=== PATIENT | male | born 1975 | race Caucasian/White ===

== ENCOUNTER 2021-01-26 12:02 | Inpatient (IN) | payer OTHER ==
[~2021-01-26] VITALS: Ht 182.9 cm; Wt 104.7 kg
[2021-01-26 12:38] LABS: BASOPHILS ABSOLUTE AUTO 0.04 K/mm3 (0.00-0.23); BASOPHILS PERCENT AUTO 1 % (0-2); EOSINOPHILS ABSOLUTE AUTO 0.42 K/mm3 (0.00-0.68); EOSINOPHILS PERCENT AUTO 6 % (0-6); Hematocrit 32.3 % (37.0-53.0); Hemoglobin 10.5 g/dL (13.5-17.5); IMMATURE GRAN ABSOLUTE AUTO 0.01 K/mm3 (0.00-0.10); IMMATURE GRAN PERCENT AUTO 0 % (0-1); LYMPHOCYTES PERCENT AUTO 20 % (21-46); MONOCYTES ABSOLUTE AUTO 0.68 K/mm3 (0.16-1.47); MONOCYTES PERCENT AUTO 9 % (4-13); Mean Corpuscular HGB 29.2 pg (26.0-34.0); Mean Corpuscular HGB Conc 32.5 g/dL (31.5-36.5); Mean Corpuscular Volume 90 fL (80-100); Mean Platelet Volume 10.6 fL (9.1-12.4); NEUTROPHILS ABSOLUTE AUTO 4.95 K/mm3 (1.96-9.15); NEUTROPHILS PERCENT AUTO 65 % (41-73); Platelet Count 258 K/mm3 (150-400); RDW Coefficient Variation 13.6 % (11.7-14.2); Red Blood Cell Count 3.59 M/mm3 (4.30-5.90)
[2021-01-26 12:51] LABS: Alanine Aminotransfer (ALT/SGP 54 U/L (12-78); Albumin, Blood 2.9 g/dL (3.4-5.0); Albumin/Globulin Ratio 0.6 (0.8-1.8); Alk Phos 93 U/L (50-136); Anion Gap 5 mmol/L (6-16); Aspartate Aminotrans (AST/SGOT 44 U/L (12-37); Bilirubin, Total 0.5 mg/dL (0.1-1.0); Blood Urea Nitrogen 17 mg/dL (8-24); Bun/Creatinine Ratio 27.7 (12.0-20.0); CO2, Blood 28 mmol/L (21-32); Calcium, Blood 10.3 mg/dL (8.5-10.1); Chloride, Blood 105 mmol/L (98-108); Creatinine, Blood 0.61 mg/dL (0.60-1.20); Globulin, Blood 4.5 g/dL (2.2-4.0); Glomerular Filtration Rate >60 (60-); Glucose, Blood 174 mg/dL (70-99); Potassium, Blood 4.3 mmol/L (3.5-5.5); Sodium, Blood 138 mmol/L (136-145); Total Protein, Blood 7.4 g/dL (6.4-8.2); Troponin I <0.015 ng/mL (0.000-0.040)
--- NOTE | 2021-01-26 22:54 | NUR ---
ASSUMED CARE OF PATIENT AT 1900. PATIENT VERY LETHARGIC BUT A/OX4 WITH SOME ANXIETY. MAINTAINING MID-HIGH 90'S ON AIRVO 50L/63%, DIM AT BASES AND LEFT UPPER, AND CLEAR R UPPER. 15L NONREBREATHER ADDED PRN FOR PATIENT COUGHING EPISODES THAT CAUSE A DESAT INTO HIGH 70'S LOW 80'S, PATIENT RECOVERS WITHIN 2 MINUTES. SINUS TACH ON MONITOR IN 120'S. CONFIRMED WITH PATIENT THAT HE WISHES TO BE DNI, EXPLAINED WHAT THAT LOOKS LIKE IN A CODE SITUATION AND PATIENT STILL MAINTAINS DNI. ORDER WAS OBTAINED TO CHANGE STATUS. WILL UPDATE THIS NOTE WITH ANY CHANGES THAT OCCUR.
--- NOTE | 2021-01-26 23:51 | NUR ---
SPOKE WITH PHARMACY REGARDING 0000 CEFTAZIDIME DOSE. RESCHEDULING IT TO 0200 D/T PREVIOUS DOSE GIVEN 4HOURS LATE.
[2021-01-27 04:14] LABS: BASOPHILS ABSOLUTE AUTO 0.03 K/mm3 (0.00-0.23); BASOPHILS PERCENT AUTO 0 % (0-2); EOSINOPHILS PERCENT AUTO 4 % (0-6); Hemoglobin 9.3 g/dL (13.5-17.5); IMMATURE GRAN ABSOLUTE AUTO 0.01 K/mm3 (0.00-0.10); IMMATURE GRAN PERCENT AUTO 0 % (0-1); LYMPHOCYTES ABSOLUTE AUTO 1.15 K/mm3 (0.84-5.20); LYMPHOCYTES PERCENT AUTO 17 % (21-46); MONOCYTES ABSOLUTE AUTO 0.68 K/mm3 (0.16-1.47); MONOCYTES PERCENT AUTO 10 % (4-13); Mean Corpuscular Volume 90 fL (80-100); Mean Platelet Volume 10.2 fL (9.1-12.4); NEUTROPHILS ABSOLUTE AUTO 4.72 K/mm3 (1.96-9.15); NEUTROPHILS PERCENT AUTO 69 % (41-73); Platelet Count 252 K/mm3 (150-400); RDW Coefficient Variation 13.5 % (11.7-14.2); Red Blood Cell Count 3.32 M/mm3 (4.30-5.90); White Blood Cell Count 6.89 K/mm3 (4.00-11.30)
[2021-01-27 04:46] LABS: Anion Gap 5 mmol/L (6-16); Blood Urea Nitrogen 12 mg/dL (8-24); Bun/Creatinine Ratio 17.7 (12.0-20.0); CO2, Blood 29 mmol/L (21-32); Calcium, Blood 9.6 mg/dL (8.5-10.1); Chloride, Blood 105 mmol/L (98-108); Creatinine, Blood 0.68 mg/dL (0.60-1.20); Glomerular Filtration Rate >60 (60-); Glucose, Blood 125 mg/dL (70-99); Magnesium, Blood 1.7 mg/dL (1.6-2.4); Potassium, Blood 3.9 mmol/L (3.5-5.5); Sodium, Blood 139 mmol/L (136-145)
[2021-01-27] MEDS ORDERED: C COMPLEX1000 M1 PO (12:57)
[2021-01-27] MEDS ORDERED: ATOR80 PO (12:58)
[2021-01-27] MEDS ORDERED: Aspir 8181 MG PO (12:58)
[2021-01-27] MEDS ORDERED: BENZ100A PO (12:59)
[2021-01-27] MEDS ORDERED: CLOP75 PO (13:00)
[2021-01-27] MEDS ORDERED: THERA-D2000 UNIT PO (13:00)
[2021-01-27] MEDS ORDERED: EZET10 PO (13:01)
[2021-01-27] MEDS ORDERED: CYCL10 PO (13:01)
[2021-01-27] MEDS ORDERED: GLIM2 PO (13:02)
[2021-01-27] MEDS ORDERED: FENO145 PO (13:02)
[2021-01-27] MEDS ORDERED: GUAI200 PO (13:03)
[2021-01-27] MEDS ORDERED: INSULANPEN SC (13:04)
[2021-01-27] MEDS ORDERED: Isosorbide Mono30 MG PO (13:06)
[2021-01-27] MEDS ORDERED: LISI5 PO (13:06)
[2021-01-27] MEDS ORDERED: METO25ER PO (13:07)
[2021-01-27] MEDS ORDERED: METF500 PO (13:07)
[2021-01-27] MEDS ORDERED: NITR.4SL SL (13:08)
[2021-01-27] MEDS ORDERED: OXYM.05NI (13:08)
[2021-01-27] MEDS ORDERED: B-1100 M1 PO (13:09)
[2021-01-27] MEDS ORDERED: VENL150ER PO (13:09)
[2021-01-27] MEDS ORDERED: ZINC15 PO (13:10)
[2021-01-27 17:23] LABS: Vancomycin, Trough 10.1 ug/mL (5.0-10.0)
--- NOTE | 2021-01-27 18:42 | NUR ---
VSS. C/O HEADACHE- TYLENOL X2. AFEBRILE. AUO. NO BM. REMAINS ON ARVO- SETTINGS TITRATED DOWN, TOLERATING CURRENT SETTINGS. WORKED WITH PT- SBA, NO DESAT EVENTS NOTED DURING EXERTION. PENDING SPUTUM SAMPLE. FREQUENT ROUNDS TO ENSURE PT SAFETY. PT IN NO APPARENT DISTRESS. WILL CONTINUE TO MONITOR UNTIL TRANSFER OF CARE TO ONCOMING RN.
--- NOTE | 2021-01-28 00:20 | NUR ---
ASSUMED CARE OF PATIENT AT 1900. A/OX4 AND VERY MUCH LESS LETHARGIC THAN YESTERDAY. PATIENT PRONED TOLERATED, ON AIRVO MAINTAINING MID/HIGH 90'S ON 50L AND 50% FIO2. 15L NONREBREATHER PATIENT USES WITH COUGHING EPISODES. DIM AT BASES AND CLEAR UPPER. PRODUCTIVE COUGH PRODUCING THIN FERNANDEZ SPUTUM. SINUS TACH ON MONITOR 120'S. WILL UPDATE WITH ANY CHANGES THIS SHIFT.
[2021-01-28 04:21] LABS: BASOPHILS ABSOLUTE AUTO 0.03 K/mm3 (0.00-0.23); BASOPHILS PERCENT AUTO 1 % (0-2); EOSINOPHILS ABSOLUTE AUTO 0.04 K/mm3 (0.00-0.68); EOSINOPHILS PERCENT AUTO 1 % (0-6); Hematocrit 28.3 % (37.0-53.0); IMMATURE GRAN ABSOLUTE AUTO 0.02 K/mm3 (0.00-0.10); IMMATURE GRAN PERCENT AUTO 0 % (0-1); LYMPHOCYTES ABSOLUTE AUTO 1.44 K/mm3 (0.84-5.20); LYMPHOCYTES PERCENT AUTO 25 % (21-46); MONOCYTES ABSOLUTE AUTO 0.56 K/mm3 (0.16-1.47); MONOCYTES PERCENT AUTO 10 % (4-13); Mean Corpuscular HGB 28.3 pg (26.0-34.0); Mean Corpuscular HGB Conc 31.8 g/dL (31.5-36.5); Mean Corpuscular Volume 89 fL (80-100); Mean Platelet Volume 10.4 fL (9.1-12.4); NEUTROPHILS ABSOLUTE AUTO 3.62 K/mm3 (1.96-9.15); NEUTROPHILS PERCENT AUTO 63 % (41-73); Platelet Count 325 K/mm3 (150-400); RDW Coefficient Variation 13.1 % (11.7-14.2); RDW Standard Deviation 41.9 fL (35.1-46.3); Red Blood Cell Count 3.18 M/mm3 (4.30-5.90); White Blood Cell Count 5.71 K/mm3 (4.00-11.30)
[2021-01-28 04:39] LABS: Anion Gap 6 mmol/L (6-16); Blood Urea Nitrogen 22 mg/dL (8-24); Bun/Creatinine Ratio 34.1 (12.0-20.0); CO2, Blood 29 mmol/L (21-32); Calcium, Blood 9.8 mg/dL (8.5-10.1); Chloride, Blood 104 mmol/L (98-108); Creatinine, Blood 0.65 mg/dL (0.60-1.20); Glomerular Filtration Rate >60 (60-); Glucose, Blood 189 mg/dL (70-99); Potassium, Blood 3.7 mmol/L (3.5-5.5); Sodium, Blood 139 mmol/L (136-145)
--- NOTE | 2021-01-28 06:12 | NUR ---
ABOUT 0520 PATIENT CALLED REPORTING THAT HE "COULDN'T SEE". COMPLETE VISION LOSS IN R EYE, L EYE VISION FIELD INTACT. ALL OTHER NEURO'S INTACT. PATIENT REPORTS NO HEADACHE/PRESSURE OR OTHER CHANGES. DR. CHEUNG NOTIFIED AND ORDERED STAT HEAD CT W/O CONTRAST. TRANSFERRED VIA WHEELCHAIR WITH 15L NONREBREATHER, SATS MAINTAINED T/O PROCESS. PATIENT BACK IN ROOM AWAITING RESULTS.
[2021-01-28 06:54] LABS: CPK Creatine Kinase 46 U/L (39-308); Troponin I <0.015 ng/mL (0.000-0.040)
[2021-01-28 06:55] LABS: Creatine Kinase MB <1.0 ng/mL (0.0-3.6); Creatine Kinase MB Index Unable to Calculate (0.0-4.0)
[2021-01-28 07:27] LABS: International Normalized Ratio 1.02; Prothrombin Time Results 10.7 Sec (9.7-11.5)
[2021-01-28 17:48] LABS: Vancomycin, Trough 14.9 ug/mL (5.0-10.0)
--- NOTE | 2021-01-28 18:41 | NUR ---
SHIFT SUMMARY ASSUMED CARE OF PATIENT AT APPROX 0700. PT A&Ox4; ANXIOUS BUT COOPERATIVE WITH CARE. PT REPORT PERIPHERAL VISION DISTURBANCES TO RIGHT EYE, NARROWED VISION; NO CHANGES T/O SHIFT. OTHERWISE NEURO CHECKS WNL. PT REPORTS HEADACHE, MEDCIATED x2 WITH TYLENOL. PT REPORTS COUGH, MEDCIATED x3 WITH COUGH/CODEINE SYRUP PER ORDERS. PT TO CTA AND MRI DURING SHIFT. PT DENIES CHEST PAIN, NAUSE AND DIZZINESS. PT SPO2 >90% FOR MAJORITY OF SHIFT, AIRVO TITRATED DOWN 45L AND 48% FIO2. OTHER VSS. NO OTHER ACUTE CHANGES NOTED DURING SHIFT. WILL CONTINUE TO MONITOR UNITL REPORTS GIVEN TO ONCOMING RN.
--- NOTE | 2021-01-28 21:50 | NUR ---
ASSUMED CARE OF PATIENT AT 1900. A/OX4 WITH ANXIETY. PATIENT HAD COMPLETE LOSS OF VISION IN R EYE DURING PREVIOUS SHIFT, SOME SIGHT HAS RETURNED EXCEPT THE OUTTER MOST PERIPHERAL VISION IN THAT EYE. CHRONIC HEADACHE MEDICATED WITH PRN TYLENOL AND PAIN RESOLVED. NO NUMBNESS OR TINGLING. MAINTAINING OVER 90% ON AIRVO 40/45% AND USING 15L NONREBREATHER WITH COUGHING EPISODES, PRODUCING SMALL AMOUNTS OF THICK FERNANDEZ SPUTUM. SINUS TACH ON MONITORM NO CP/PRESSURE. WILL UPDATE CHANGES OCCUR.
[2021-01-29 04:52] LABS: BASOPHILS ABSOLUTE AUTO 0.04 K/mm3 (0.00-0.23); BASOPHILS PERCENT AUTO 1 % (0-2); EOSINOPHILS ABSOLUTE AUTO 0.14 K/mm3 (0.00-0.68); EOSINOPHILS PERCENT AUTO 2 % (0-6); Hematocrit 26.5 % (37.0-53.0); Hemoglobin 8.8 g/dL (13.5-17.5); IMMATURE GRAN ABSOLUTE AUTO 0.05 K/mm3 (0.00-0.10); IMMATURE GRAN PERCENT AUTO 1 % (0-1); LYMPHOCYTES ABSOLUTE AUTO 1.72 K/mm3 (0.84-5.20); LYMPHOCYTES PERCENT AUTO 27 % (21-46); MONOCYTES ABSOLUTE AUTO 0.53 K/mm3 (0.16-1.47); MONOCYTES PERCENT AUTO 8 % (4-13); Mean Corpuscular HGB 29.1 pg (26.0-34.0); Mean Corpuscular HGB Conc 33.2 g/dL (31.5-36.5); Mean Corpuscular Volume 88 fL (80-100); Mean Platelet Volume 10.5 fL (9.1-12.4); NEUTROPHILS ABSOLUTE AUTO 3.81 K/mm3 (1.96-9.15); NEUTROPHILS PERCENT AUTO 61 % (41-73); Platelet Count 381 K/mm3 (150-400); RDW Coefficient Variation 13.3 % (11.7-14.2); RDW Standard Deviation 42.1 fL (35.1-46.3); Red Blood Cell Count 3.02 M/mm3 (4.30-5.90); White Blood Cell Count 6.29 K/mm3 (4.00-11.30)
[2021-01-29 06:25] LABS: Anion Gap 10 mmol/L (6-16); Blood Urea Nitrogen 22 mg/dL (8-24); Bun/Creatinine Ratio 34.6 (12.0-20.0); CO2, Blood 25 mmol/L (21-32); Calcium, Blood 9.5 mg/dL (8.5-10.1); Chloride, Blood 105 mmol/L (98-108); Creatinine, Blood 0.64 mg/dL (0.60-1.20); Glomerular Filtration Rate >60 (60-); Glucose, Blood 174 mg/dL (70-99); Potassium, Blood 4.2 mmol/L (3.5-5.5); Sodium, Blood 140 mmol/L (136-145)
--- NOTE | 2021-01-29 14:56 | NUR ---
Upon receiving a referral for spiritual care, I visit patient. 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 He talks about his struggles with memory loss and that problem that it has created with managing his medications. He says that he is living with his sister who helps sometimes with keeping his medications correct. Patient shares about his fears about going home too son because he is afraid he will have another medical episode. He explains about how he used to be Evangelical but now attends [facility] in [place]. I provide therapeuitic listening, companionship, recitation of inspiring Bible verses and prayer. Patient responds well and show signs of being encouraged in his terell. I will continue to assist patient in his spiritual growth plan upon DC.
--- NOTE | 2021-01-29 15:59 | NUR ---
Spiritual care visit conducted. Patient is sitting up in bed and alert. Patient talks about his jackson with COVID and the toll it has taken on him and his family (, Pavithra and two chiildren ages 20 and 11 y/o). Patient then talks at length about his career of 20 yrs in the [employer]. Patient tells me that the mission, his position, his friends and the process to attack problems were very clear even though the world around him was chaotic and he comes back to a calm world where the mission, his position, his friends and the process of dealing with problems is completely unclear. In this flux lies his struggle and hopefully at some point his strength. I provide therapeutic listening, companionship, gentle psychologist counseling and a calming presence. Patient responds well and voices appreciation for the visit and asks for me to return if possible.
[2021-01-29 18:01] LABS: Vancomycin, Trough 17.4 ug/mL (5.0-10.0)
--- NOTE | 2021-01-29 18:44 | NUR ---
SHIFT SUMMARY PT A&Ox4; CALM AND COOPERATIVE WITH CARE. PT CONTINUES TO HAVE RIGHT EYE VISUAL DISTURBANCE, NO CHANGES T/O SHIFT, OTHERWISE NEURO WNL. PT RESTING IN BED, UP IN CHAIR FOR DINNER. PT REPORTS HEADACHE, MEDCIATED x2 WITH TYLENOL. PT COUGHING, MEDICATED x2 PER EMAR. PT SPO2 >90% T/O SHIFT, TITRATED TO 40L AND 40% FIO2. PT RECIEVING PO STEROIDS. VSS. NO OTHER ACUTE CHAGNES NOTED. WILL CONTINUE TO MONITOR UNITL REPORT GIVEN TO ONCOMING RN.
[2021-01-30 04:36] LABS: BASOPHILS ABSOLUTE AUTO 0.06 K/mm3 (0.00-0.23); BASOPHILS PERCENT AUTO 1 % (0-2); EOSINOPHILS ABSOLUTE AUTO 0.12 K/mm3 (0.00-0.68); EOSINOPHILS PERCENT AUTO 2 % (0-6); Hematocrit 26.3 % (37.0-53.0); Hemoglobin 8.8 g/dL (13.5-17.5); IMMATURE GRAN ABSOLUTE AUTO 0.12 K/mm3 (0.00-0.10); IMMATURE GRAN PERCENT AUTO 2 % (0-1); LYMPHOCYTES ABSOLUTE AUTO 1.77 K/mm3 (0.84-5.20); LYMPHOCYTES PERCENT AUTO 26 % (21-46); MONOCYTES ABSOLUTE AUTO 0.62 K/mm3 (0.16-1.47); MONOCYTES PERCENT AUTO 9 % (4-13); Mean Corpuscular HGB 28.9 pg (26.0-34.0); Mean Corpuscular HGB Conc 33.5 g/dL (31.5-36.5); Mean Corpuscular Volume 87 fL (80-100); Mean Platelet Volume 10.3 fL (9.1-12.4); NEUTROPHILS PERCENT AUTO 60 % (41-73); NRBC ABSOLUTE 0.02 K/mm3 (0.00-0.02); NRBC Auto 0.3 /100 WBC (0.0-0.2); Platelet Count 462 K/mm3 (150-400); RDW Coefficient Variation 13.2 % (11.7-14.2); RDW Standard Deviation 40.9 fL (35.1-46.3); Red Blood Cell Count 3.04 M/mm3 (4.30-5.90); White Blood Cell Count 6.79 K/mm3 (4.00-11.30)
[2021-01-30 05:53] LABS: Alanine Aminotransfer (ALT/SGP 31 U/L (12-78); Albumin, Blood 2.5 g/dL (3.4-5.0); Albumin/Globulin Ratio 0.8 (0.8-1.8); Alk Phos 80 U/L (50-136); Anion Gap 8 mmol/L (6-16); Aspartate Aminotrans (AST/SGOT 14 U/L (12-37); Bilirubin, Total 0.4 mg/dL (0.1-1.0); Blood Urea Nitrogen 21 mg/dL (8-24); Bun/Creatinine Ratio 32.6 (12.0-20.0); CO2, Blood 30 mmol/L (21-32); Calcium, Blood 9.4 mg/dL (8.5-10.1); Chloride, Blood 104 mmol/L (98-108); Creatinine, Blood 0.65 mg/dL (0.60-1.20); Globulin, Blood 3.3 g/dL (2.2-4.0); Glomerular Filtration Rate >60 (60-); Glucose, Blood 163 mg/dL (70-99); Potassium, Blood 4.2 mmol/L (3.5-5.5); Sodium, Blood 142 mmol/L (136-145); Total Protein, Blood 5.8 g/dL (6.4-8.2)
--- NOTE | 2021-01-30 06:12 | NUR ---
SHIFT SUMMARY PATIENT A&Ox4, COOPERATIVE WITH CARE. USES CALL LIGHT APPROPRIATELY. VSS. PATIENT SWITCHED FROM AIRVO TO HIGH FLOW NASAL CANNULA AT 6-7.5L WITH SATURATIONS ABOVE 90%. DENIES VISUAL DISTURBANCES OR N/T. PATIENT PRONED FOR 2-3 HOURS THIS AM. COUGHING FITS THROUGH OUT NIGHT, MEDICATED PER EMAR. NO OTHER SIGNIFICANT CHANGES THIS SHIFT. WILL REPORT TO DAY SHIFT.
--- NOTE | 2021-01-30 16:38 | NUR ---
PT TRANSITIONED TO MEDICAL STATUS WITH NO TELE. PT TRANSFERRED TO ROOM 312, REPORT GIVEN TO TANYA HOLMAN. PT HAS NO ACUTE CHANGED FOR THE SHIFT, VITALS HAS BEEN STABLE O2 TURNED DOWN TO 3L SATS KEPT ABOVE 95%, PT STILL DESATS TO LOW 80'S WITH ESERTION, QUICK RECOVERY NRB PRN AT BEDSIDE. PT HAS MOSTLY BEEN INDEPENDENT IN THE ROOM, CALLS APPROPRIATELY, COHERENT AND PLEASANT. HAD HEADACHE AT THE BEGINNING OF THE SHIFT, TYLENOL GIVEN AND WAS EFFECTIVE. COUGH SYRUP GIVEN WELL FOR COUGHING SPELLS. PT ACCOMPANIED BY PCT VIA WHEELCHAIR, ALL BELONGINGS SENT WITH THE PT. WILL MONITOR
--- NOTE | 2021-01-30 19:13 | NUR ---
SHIFT SUMMARY; JONE ARRIVED TO UNIT AT APPROX 1645. HE IS PLEASANT AND COOPERATIVE WITH CARE. HE IS INDEPENDANT IN ROOM. HE IS ON 3 LITERS O2 VIA NASAL CANNULA. HE ASKS FOR A NRB AT 4 LITERS FOR RESCUE AFTER AMBULATING IN ROOM. HE HAS A POWERGLIDE TO UPPER RIGHT ARM THAT IS A DOUBLE LUMEN. FLUSHES EASILY AND DRESSING IS CLEAN DRY AND INTACT. TANYA DAWSON RN
[2021-01-31 05:55] LABS: BASOPHILS ABSOLUTE AUTO 0.07 K/mm3 (0.00-0.23); BASOPHILS PERCENT AUTO 1 % (0-2); EOSINOPHILS ABSOLUTE AUTO 0.15 K/mm3 (0.00-0.68); EOSINOPHILS PERCENT AUTO 2 % (0-6); Hematocrit 26.3 % (37.0-53.0); Hemoglobin 8.6 g/dL (13.5-17.5); IMMATURE GRAN PERCENT AUTO 4 % (0-1); LYMPHOCYTES PERCENT AUTO 30 % (21-46); MONOCYTES ABSOLUTE AUTO 0.53 K/mm3 (0.16-1.47); MONOCYTES PERCENT AUTO 8 % (4-13); Mean Corpuscular HGB 28.8 pg (26.0-34.0); Mean Corpuscular HGB Conc 32.7 g/dL (31.5-36.5); Mean Corpuscular Volume 88 fL (80-100); Mean Platelet Volume 10.3 fL (9.1-12.4); NEUTROPHILS ABSOLUTE AUTO 3.75 K/mm3 (1.96-9.15); NEUTROPHILS PERCENT AUTO 54 % (41-73); NRBC ABSOLUTE 0.05 K/mm3 (0.00-0.02); NRBC Auto 0.7 /100 WBC (0.0-0.2); Platelet Count 492 K/mm3 (150-400); RDW Coefficient Variation 13.4 % (11.7-14.2); RDW Standard Deviation 42.2 fL (35.1-46.3); Red Blood Cell Count 2.99 M/mm3 (4.30-5.90)
[2021-01-31 06:16] LABS: Anion Gap 9 mmol/L (6-16); Blood Urea Nitrogen 24 mg/dL (8-24); Bun/Creatinine Ratio 36.5 (12.0-20.0); CO2, Blood 28 mmol/L (21-32); Calcium, Blood 9.2 mg/dL (8.5-10.1); Chloride, Blood 105 mmol/L (98-108); Creatinine, Blood 0.66 mg/dL (0.60-1.20); Glomerular Filtration Rate >60 (60-); Glucose, Blood 169 mg/dL (70-99); Potassium, Blood 4.2 mmol/L (3.5-5.5); Sodium, Blood 142 mmol/L (136-145)
--- NOTE | 2021-01-31 07:16 | NUR ---
LILIBETH HAD AN UNEVENTFUL NIGHT, HE WAS TWICE ADMISTERED GUANEIFESIN BECAUSE HE WAS COUGHING A LOT. HE SLEPT TROUGHOUT THE NIGHT
--- NOTE | 2021-01-31 18:01 | NUR ---
SHIFT SUMMARY PATIENT MEDICATED WITH TYLENOL X1 FOR HEADACHE. PATIENT DENIES NAUSEA AND SHORTNESS OF BREATH AT REST. PATIENT REPORTS SOB WITH ACTIVITY. PATIENT ON 3L VIA N/C, BUT USES NRB AT 10L TO RECOVER OCCASSIONALLY. PATIENT IS INDEPENDENT IN ROOM. PATIENT IS EATING AND DRINKING WELL. PATIENT IS PLEASANT AND COOPERATIVE WITH CARE.
--- NOTE | 2021-02-01 06:38 | NUR ---
PT WAS ALERT AND ORIENTED THIS SHIFT, SLEPT FOR SOME OF THE NIGH. CONTINUES TO DESAT WITH AMBULATION AND COUGH INTO THE MID 70'S, USES NRB HIGHFLOW MASK AND GETS UP TO THE MID 80'S WHERE HE STAYS FOR UP TO A MIN, THEN LANDS BACK AT HIS BASELINE MID 90'S ON 3L VIA NC, RT AWARE. PT MADE NO COMPLAINTS THROUGH NIGHT, IV INFUSING ABT'S AND WNL. NO OTHER CHANGES TO REPORT. PT IND IN ROOM. STAFF WILL CONT TO MONITOR.
[2021-02-01 10:27] LABS: Vancomycin, Trough 14.9 ug/mL (5.0-10.0)
--- NOTE | 2021-02-01 17:58 | NUR ---
SHIFT SUMMARY PATIENT DENIES PAIN, NAUSEA, AND SHORTNESS OF BREATH AT REST. PATIENT GET SOB WITH ACTIVITY AND DESATS TO 80. PATIENT ON 3L VIA N/C, BUT USES NBR AT 10L TO RECOVER. PATIENT MEDICATED X2 FOR COUGH. PATIENT IS EATING AND DRINKING WELL. PATIENT IS PLEASANT AND COOPERATIVE WITH CARE. DOCTER SAID PATIENT IS A POSSIBLE DISCHARGE TOMORROW.
--- NOTE | 2021-02-02 05:43 | NUR ---
LILIBETH WENT FROM 3L TO 2.5L NC DURING THE DAY. HIS SPO2 REMAINED IN THE 90'S THE WHOLE NIGHT. HE UNDERSTANDS THAT THE USE OF THE NONREBREATHER MIGHT CAUSE HIS LUNG FUNCTIONABILITY TO REGRESS AND HAS BEEN DOING WELL ON 2.5L DURING THE SHIFT. HE IS STILL COOPERATIVE, NO MAJOR OR ADVERSE CLINICAL EVENT DURING MY SHIFT.
--- NOTE | 2021-02-02 17:24 | NUR ---
PT PLEASANT TODAY.. WAS ABLE TO FINALLY GET AN O2 WHEEL CART THIS SILVANA. HE SLOWLY WALKING HALLS AT THIS TIME. O2 HOLDING >95% . CONTINUES TO BE AT 2.5 L O2. NO NEW CONCERNS NOTED. STATES FEELING BETTER WITH SOME FREEDOM. IF GOES SLOW DENIES SOB. BED IN LOW POSITION, ANTONINA OSMAN IN REACH, CALLS APPROP
--- NOTE | 2021-02-03 04:21 | NUR ---
LILIBETH REMAINED STABLE THROUGHOUT THE SHIF, SPO2 REMAINED BETWEEN 95-98 WHILE ON 2.5 L NC. HE AMBULATED WITH AN OXGEN TANK AT 3L WITHOUT ANY SIGNIFICANT DROP IN SPO2
[2021-02-03] MEDS ORDERED: PRED20 PO (11:00)
--- NOTE | 2021-02-03 12:12 | NUR ---
DISCHARGE REVIEWEED WITH PT. HE VERBALIZED UNDERSTANDING MEDS AND INST. HERE WITH O2 TO TRANSPORT HOME. IV PULLED INTACT. NO TELE. WHEELED TO DOOR BY AIDE AT 1210
== END 2021-02-03 12:17 | disposition home or self-care (01) | DRG 177 ==
LOC: ER 12:02 → PCU 15:36 → MEDS 01-30 16:29
PROVIDERS: Emergency Medicine; Internal Medicine; Pharmacist; Student in an Organized Health Care Education/Training Program; ADMIT Hospitalist
PROC: 3E02340 Introduction of Influenza Vaccine into Muscle, Percutaneous Approach (ICD-10-PCS; principal; 2021-01-26)
PROC: 8E0ZXY6 Isolation (ICD-10-PCS; 2021-01-26)
PROC: 5A0945A Assistance with Respiratory Ventilation, 24-96 Consecutive Hours, High Flow/Velocity Cannula (ICD-10-PCS; 2021-01-26)
PROC: 3E0DX3Z Introduction of Anti-inflammatory into Mouth and Pharynx, External Approach (ICD-10-PCS; 2021-01-27)
DX: U07.1 COVID-19 (principal); J12.82 Pneumonia due to coronavirus disease 2019; J96.01 Acute respiratory failure with hypoxia; J15.9 Unspecified bacterial pneumonia; Z66 Do not resuscitate; H47.011 Ischemic optic neuropathy, right eye; R59.0 Localized enlarged lymph nodes; F32.A Depression, unspecified; I10 Essential (primary) hypertension; E78.5 Hyperlipidemia, unspecified; Z23 Encounter for immunization; I25.10 Atherosclerotic heart disease of native coronary artery without angina pectoris; F43.10 Post-traumatic stress disorder, unspecified; E11.9 Type 2 diabetes mellitus without complications; Z88.0 Allergy status to penicillin; Z79.899 Other long term (current) drug therapy; Z79.4 Long term (current) use of insulin; Z95.5 Presence of coronary angioplasty implant and graft; Z87.891 Personal history of nicotine dependence; Z79.82 Long term (current) use of aspirin
CPT/HCPCS: 36415; 70450; 70496; 70498; 70551; 71045; 71260; 80048; 80053; 80202; 82550; 82553; 82947; 83036; 83605; 83695; 83735; 84145; 84484; 85025; 85246; 85384; 85610; 85730; 87040; 87070; 87205; 90686; 93005; 93010; 93306; 94762; 96365; 96366; 96368; 96375; 96376; 97110; 97112; 97161; 97165; 97530; 99285-25; A9270; C1751; G0008; J0456; J0696; J0713; J1650; J1815; J2060; J3370; J7030; J7040; J7050; J7120; J7512; Q9967